=== PATIENT | male | born 1985 | race Caucasian/White ===

== ENCOUNTER 2020-10-02 20:50 | Emergency (ER) | payer OTHER, SELFPAY ==
[2020-10-02 20:51] VITALS: BP 123/64; PULSE 56; RESP 17; TEMP 36.7; O2SAT 100; BMI 26.5
--- NOTE | 2020-10-02 21:08 | EKG12_ITS ---
Test Reason : ANXIETY Blood Pressure : / mmHG Vent. Rate : 053 BPM Atrial Rate : 053 BPM P-R Int : 112 ms QRS Dur : 094 ms QT Int : 490 ms P-R-T Axes : 065 049 037 degrees QTc Int : 459 ms Sinus bradycardia with sinus arrhythmia Otherwise normal ECG Confirmed by FRANCES FRIEDMAN, DIMAS ([id number]), assistant film editor EULOGIO ELIZABETH ([id number]) on 10/05/2020 9:37:06 AM Referred By: SIDNEY Confirmed By:DIMAS DANIELS MD
--- NOTE | 2020-10-02 21:09 | ED.VISSUMM ---
- ER Visit Summary Date of Service: 10/02/20 Chief Complaint: Triage says panic attack after smoking marijuana patient states he passed out in the shower History of Present Illness: The patient is a 35 M patient denies any significant past medical history. He has had multiple shoulder surgeries. He states he is in the best shape of his life. Said he used to weigh over 300 pounds he is lost a bunch of weight through diet and exercise in the last 10 months. He states he was in the shower tonight and passed out. Physical Examination: Young male no acute distress. Vital signs are stable and afebrile. Pulse ox 98%. He does not look septic or toxic. H EENT exam unremarkable. No trauma no smell of alcohol. Neck nontender. No lymphadenopathy. Lungs clear to auscultation bilaterally. Heart regular rhythm rate about 60 no murmur. Chest wall nontender. Abdomen soft nontender. Extremities moves all 4. No deformities. Nontender. No edema. Neurologically is awake and alert. He is answering questions. Test Results: CAT scan of the brain without contrast read as normal by the radiologist. Reviewed by me. EKG sinus bradycardia rate of 53 no acute signs of MA or ischemia. CBC shows white count 8. Hemoglobin 13. No bands. Chemistries unremarkable normal creatinine and gap. Glucose 95. Alcohol level negative. Emergency Department Course and Treatment: I spoke to the patient's fianc?e via phone. She states that he was acting abnormally. He did smoke marijuana but that is not particularly new. She just said he seemed to be acting differently and may have had a seizure. Stated it resolved very quickly however. She does not believe he is been ill recently. She does not know of any psychiatric illness in his history. Treatment Plan: Went over all test results with the patient and his fianc?e. She is comfortable taking him home and will come pick him up. Patient denies any suicidal or homicidal thoughts Disposition: Discharged home Impression: Rule out seizure Panic attack Adverse reaction to marijuana This note was generated with [employer] dictation software. It may contain incorrect words, spelling, and punctuation that were not noted in review of the chart prior to signing ED Disposition - Plan for ED Patient: Referrals: NOT,DEFINED [NON-STAFF] -
--- NOTE | 2020-10-02 21:12 | ED.RN ---
NO OLD EKGS IN MUSE
--- NOTE | 2020-10-02 21:13 | ED.RN ---
CALLED [facility] PER REQUEST OD DR KEE TO GET SOME BACK STORY, THEY CALL AN HOUR BEFORE ARRIVAL TO SEE IF THIS PT WAS HERE
--- NOTE | 2020-10-02 22:03 | CT_ITS ---
STUDY: CT BRAIN WITHOUT CONTRAST REASON FOR EXAM: Male, 35 years old. ? SEIZURE RADIATION DOSAGE (If Supplied By Facility): CTDIvol = ( 44.99 ) mGy, DLP = ( 812.98 ) mGycm TECHNIQUE: Transaxial CT imaging of the brain was performed without administration of intravenous contrast material. Individualized dose optimization techniques were used for this CT. COMPARISON: No relevant priors. FINDINGS: Normal soft tissue structures. Normal calvarium. Normal size ventricles and extra-axial spaces for the patient''s age. Normal white matter tracts of the cerebral hemispheres. Normal basal ganglia and thalami. Normal brainstem. Normal cerebellum. There is no intracranial hemorrhage. There are no findings of an acute ischemic infarction. Normal visualized paranasal sinuses. CT/Brain/Head without Contrast IMPRESSION: Normal unenhanced CT scan of the brain. Electronically Signed: Carine Greer MD at 22:48 EST Tel , Service support ,
[2020-10-02 22:26] LABS: Absolute Lymphocyte Count 1.72 X10^3/uL (0.83-4.51); Absolute Neutrophil Count 6.2 X10^3/uL (2.0-7.7); Basophil# 0.04 X10^3/uL; Basophil% 0.4 % (0-1); Eosinophil# 0.07 X10^3/uL; Eosinophils% 0.8 % (0-5); Hematocrit 38.5 % (40-54); Lymphocyte # 1.72 X10^3/ul (4.0); Lymphocyte % 19.3 % (19-41); Mean Corp Hgb Conc 33.8 g/dL (32-36); Mean Corpuscular Hgb 29.5 pg (27.0-32.0); Mean Corpuscular Volume 87.5 fL (80-94); Mean Platelet Vol. 9.4 fl (6.2-12.0); Monocyte# 0.86 X10^3/uL; Monocyte% 9.6 % (0-10); NRBC Flagged by Analyzer 0 % (0-5); Neutrophil # 6.22 X10^3/uL (2.7-7.7); Neutrophil % 69.7 % (47-70); Platelet Count 220 K/mm3 (150-450); RBC Distribution Width CV 12.2 % (11.6-14.6); RBC Distribution Width SD 39.4 fl (35.1-43.9); White Blood Count 8.9 K/mm3 (4.4-11.0)
[2020-10-02 22:45] LABS: Anion Gap 8 (5-15); BUN 15 mg/dL (7-18); BUN/Creat Ratio 18.8 RATIO (10-20); Calcium,Total 8.4 mg/dL (8.5-10.1); Chloride 107 mmol/L (98-107); EST Glomerular Filtration Rate 118 mL/min (>60); Est Glom Filt Rate - Afr Amer 142 mL/min (>60); Estimated Creatinine Clearance 151.27 ml/min; Glucose 95 mg/dL (74-106); Potassium 3.6 mmol/L (3.5-5.1); Sodium Level 140 mmol/L (136-145)
[2020-10-02 22:55] LABS: Alcohol, Blood (Medical)-Serum < 3.0 mg/dL
--- NOTE | 2020-10-02 23:14 | ED.DEP ---
ED Disposition - Plan for ED Patient: Disposition: Home or Assisted Living Instructions: ED Panic Attack Referrals: Isrrael Kamara MD [NON-STAFF] - Additional Instructions: Follow-up with a physician for further evaluation. Unsure exactly what happened tonight. Your exam labs and CAT scan of all been normal. This may have been a reaction to the marijuana versus a panic attack versus even a seizure.
[2020-10-02 23:24] VITALS: BP 135/68; PULSE 67; RESP 15; O2SAT 98
== END 2020-10-02 23:37 | disposition home or self-care (01) ==
PROVIDERS: Emergency Provider Emergency Medicine
DX: F41.0 Panic disorder [episodic paroxysmal anxiety] (principal); T40.7X1A Poisoning by cannabis (derivatives), accidental (unintentional), initial encounter; R55 Syncope and collapse; Y92.002 Bathroom of unspecified non-institutional (private) residence as the place of occurrence of the external cause
CPT/HCPCS: 70450; 80048; 82077; 85025; 93005; 99284